=== PATIENT | male | born 1980 | race Caucasian/White ===

== ENCOUNTER 2019-10-11 12:35 | Outpatient (CLI) | payer BC, SELFPAY ==
--- NOTE | 2019-10-11 12:47 | XRR_ITS ---
PROCEDURE INFORMATION: Exam: XR Cervical Spine, 2 or 3 Views Exam date and time: 10/11/2019 1:11 PM Age: 39 years old Clinical indication: Radicular pain (radiculopathy); Cervical region; Patient HX: Neuropathic pain/cervical radiculopathy and pain lft shoulder TECHNIQUE: Imaging protocol: XR of the cervical spine, 2 or 3 views. COMPARISON: No relevant prior studies available. FINDINGS: Vertebrae: Normal. No acute fracture. There is loss of cervical lordosis consistent with muscle spasm. Soft tissues: Unremarkable. XR/XR cervical spine 3V* [id number] IMPRESSION: Loss of cervical lordosis Otherwise No acute findings.
--- NOTE | 2019-10-11 12:47 | XRR_ITS ---
PROCEDURE INFORMATION: Exam: XR Left Shoulder Exam date and time: 10/11/2019 1:11 PM Age: 39 years old Clinical indication: Left; Patient HX: C/O neuropathic pain, acute pain L shoulder; Additional info: Neuropatihic pain/acute pain of L shoulder TECHNIQUE: Imaging protocol: XR Left shoulder. Views: 2 or more views. COMPARISON: No relevant prior studies available. FINDINGS: Bones/joints: Negative for acute bony abnormality Soft tissues: Normal. XR/XR shoulder LT min 2V* [id number] IMPRESSION: No acute bone abnormality
--- NOTE | 2019-10-11 12:47 | XRR_ITS ---
PROCEDURE INFORMATION: Exam: XR Thoracic Spine, 3 Views Exam date and time: 10/11/2019 1:11 PM Age: 39 years old Clinical indication: Pain in thoracic spine; Other: Neuropathic pain/acute midline thoracic pain; Additional info: Neuropathic pain/acute midline thoracic back pain TECHNIQUE: Imaging protocol: XR of the thoracic spine, 3 views. COMPARISON: No relevant prior studies available. FINDINGS: Vertebrae: Normal. No acute fracture. Normal alignment. Soft tissues: Unremarkable. XR/XR thoracic spine 2V [id number] IMPRESSION: No acute findings.
== END 2019-10-11 12:36 | disposition home or self-care (01) ==
LOC: RAD 12:42
PROVIDERS: PCP Family Medicine; Visit Provider Family Medicine
DX: M25.512 Pain in left shoulder (principal); M54.6 Pain in thoracic spine; M54.12 Radiculopathy, cervical region
CPT/HCPCS: 72040; 72070; 73030

== ENCOUNTER → 2023-04-15 12:10 | Outpatient (BNVA) | payer BC, SELFPAY | PROVIDERS: PCP Family Medicine; Visit Provider Emergency Medicine | DX: B34.9 Viral infection, unspecified (principal) | CPT/HCPCS: 87400 ==